=== PATIENT | female | born 1955 | race Caucasian/White ===

== ENCOUNTER 2018-04-19 14:26 | Emergency (ER) | payer SELFPAY ==
[~2018-04-19] VITALS: Ht 162.6 cm; Wt 59.0 kg
[2018-04-19] MEDS ORDERED: KETOROLAC TROMETHAMINE 60 MG/2 ML VIAL IM STA (14:55)
--- NOTE | 2018-04-19 15:56 | Diagnostic Imaging Report ---
Hip complete Indication: Fall Technique: AP and frogleg views of left hip obtained. Comparison: None Findings: Left hip remains properly located. The cortex appears intact throughout. Trochanters appear intact. Adjacent pubic rami appear intact. Lower lumbar spine demonstrates mild degenerative changes. No focal osseous lesions. IMPRESSION: Left hip properly located. No convincing evidence for fracture. If there is persistent pain or clinical concern, consider a limited MRI for more complete evaluation. Signed by: Dr. Georges Ahumada MD on 04/19/2018 3:53 PM
--- NOTE | 2018-04-19 22:02 | Diagnostic Imaging Report ---
TECHNIQUE: Magnetic resonance imaging of the LEFT HIP was performed WITHOUT injected contrast. Motion artifact partially limits sensitivity and specificity of the exam. HISTORY: Pain with weightbearing, rule out fracture COMPARISON: None available. FINDINGS: Bone: The bone marrow signal is heterogeneous, compatible with red marrow conversion, no specific evidence of a focal bone marrow replacing abnormality. Irregular linear signal within the left sacral ala with mild adjacent bone marrow edema. Irregular linear signal within the left anterior column of the acetabulum with moderate adjacent bone marrow edema. Extremely subtle linear signal adjacent to the superior vertex of the parasymphyseal region of the right pubic bone with minimal associated edema. Femoroacetabular Joint: Acetabular labrum: Diffuse attenuation and contour irregularity, most notably the anterosuperior labrum. Articular Cartilage: Intermediate to high-grade erosion of the weightbearing cartilage. Muscle and tendons: Moderate edema within the left obturator internus muscle. Soft tissues: Otherwise, unremarkable. IMPRESSION: 1. Nondisplaced insufficiency fractures of the left sacrum sacrum and anterior, the left acetabulum. 2. Left obturator internus strain. 3. Subtle, small, nondisplaced, incomplete, insufficiency fracture at the parasymphyseal region of the left pubis. Discussed with Dr. Rodriguez via phone on April 20, 2018 at 0834. The provider verbalizes an understanding. A preliminary report was provided by Dr. Cunha on April 20, 2018 at 1008 hours. Signed by: Dr. Johann Caceres D.O., M.M.M. on 04/20/2018 8:35 AM
[2018-04-19] MEDS ORDERED: SODIUM CHLORIDE 0.9% 1000ML 1,000 ML IV SCH (22:45)
[2018-04-19] MEDS ORDERED: TRAMADOL HCL 50 MG TAB PO ONE (22:45)
[2018-04-19] MEDS ORDERED: ULTRAM 50MG50 MG PO (23:05)
--- NOTE | 2018-04-19 23:47 | Diagnostic Imaging Report ---
History:Fall, bruise above the right eyebrow. Comparison studies:None Technique: Axial images were obtained from the brain and cervical spine. Coronal and sagittal images reconstructed from the axial data. Intravenous contrast: None Dose modulation, iterative reconstruction, and/or weight based adjustment of the mA/kV was utilized to reduce the radiation dose to as low as reasonably achievable. Findings: Head CT: Scalp/skull: No abnormalities. No fractures, blastic or lytic lesions. Brain sulci: Appropriate for age. Ventricles: Normal in size and configuration. No hydrocephalus. Extra-axial spaces: No masses. No fluid collections. Parenchyma: No abnormal densities. No masses, hemorrhage, acute or chronic cortical vascular insults. Sellar/suprasellar region: No abnormalities. Craniocervical junction: Patent foramen magnum. No Chiari one malformation. Cervical spine CT: Fractures: None. Soft tissues: No gross abnormalities. Atlantoaxial articulation: Degenerative changes without acute abnormality. Alignment: Normal lordosis. No scoliosis. Cervicomedullary junction: No abnormalities. Patent foramen magnum. Vertebrae: No infection or neoplasm. Degenerative changes: Patent canal and foramina. Incidental findings: None. Impression: Head CT: 1. No acute abnormality. Cervical spine CT: 1. No acute abnormalities. 2. Cannot exclude ligament, spinal cord and or vascular abnormalities on the basis of this examination. Signed by: DR Gerardo Beck M.D. on 04/19/2018 11:44 PM
[2018-04-20] MEDS ORDERED: SODIUM CHLORIDE 0.9% 1000ML 1,000 ML IV ONE
[2018-04-20 01:16] VITALS: BP 91/68
== END 2018-04-20 01:59 | disposition home or self-care (01) ==
LOC: ER 14:26
DX: S32.19XA Other fracture of sacrum, initial encounter for closed fracture (principal); S32.402A Unspecified fracture of left acetabulum, initial encounter for closed fracture; S32.592A Other specified fracture of left pubis, initial encounter for closed fracture; S00.03XA Contusion of scalp, initial encounter; W01.0XXA Fall on same level from slipping, tripping and stumbling without subsequent striking against object, initial encounter; Y93.01 Activity, walking, marching and hiking; Y92.008 Other place in unspecified non-institutional (private) residence as the place of occurrence of the external cause
CPT/HCPCS: 70450; 72125; 73502; 73721; 99284; J7030 ×2